=== PATIENT | male | born 1980 | race Caucasian/White ===

== ENCOUNTER 2023-08-24 16:53 | Emergency (ER) | payer MEDICAID, SELFPAY ==
[2023-08-24 17:28] VITALS: BP 131/93; PULSE 114; RESP 16; TEMP 37.4; O2SAT 99
--- NOTE | 2023-08-24 20:22 | ED.EAR ---
HPI - Ear Problem General Chief complaint: Ear Stated complaint: left ear pain and swelling Time Seen by Provider: 08/24/23 19:36 History of Present Illness HPI Narrative: 43-year-old male presenting to the emergency department for evaluation of left ear pain. Pain started bothering him a few days ago. patient has been swimming. Related Data Allergies Allergy/AdvReac Type Severity Reaction Status Date / Time pcn Allergy Unknown Uncoded 04/15/15 10:25 Review of Systems Review of Systems: All systems reviewed & are unremarkable except as noted in HPI and below Exam Narrative: APPEARANCE: Well appearing, no pain, no distress, well-nourished. HEAD: normocephalic, atraumatic. EYES: PERRLA/EOMI, conjunctivae clear. NOSE: Normal no drainage EARS: Otitis externa of the left ear THROAT: Pharynx clear, no exudate. NECK: Supple. No adenopathy, no masses. RESPIRATORY: Airway patent, respirations nonlabored. Clear to auscultation bilaterally, no rales, rhonchi, wheezing. CARDIOVASCULAR: Regular rate and rhythm without murmurs rubs or gallops. ABDOMINAL: Soft, nontender, nondistended, normal bowel sounds MUSCULOSKELETAL: Moves all extremities. Strength/ROM intact, No edema, No calf tenderness. NEURO: Alert. Cranial nerves II through XII intact. Good gait. Good coordination SKIN: Warm, dry. Normal Color Course Vital Signs Vital signs: Vital Signs Temperature 99.3 F 08/24/23 17:28 Pulse Rate 114 H 08/24/23 17:28 Respiratory Rate 16 08/24/23 17:28 Blood Pressure 131/93 H 08/24/23 17:28 Pulse Oximetry 99 08/24/23 17:28 Oxygen Delivery Room Air 08/24/23 17:28 Temperature 99.3 F 08/24/23 17:28 Pulse Rate 114 H 08/24/23 17:28 Respiratory Rate 16 08/24/23 17:28 Blood Pressure 131/93 H 08/24/23 17:28 Pulse Oximetry 99 08/24/23 17:28 Oxygen Delivery Room Air 08/24/23 17:28 Medical Decision Making [facility] Narrative Medical decision making narrative: 33-year-old male presents to the emergency department for evaluation of left ear pain. Patient does have otitis externa. He was treated with ofloxacin. Wick was placed. Patient was encouraged close follow-up with primary care physician. Differential Diagnosis Differential Diagnosis: Otitis media, otitis externa Vital Signs Vital Signs: Vital Signs Temperature 99.3 F 08/24/23 17:28 Pulse Rate 114 H 08/24/23 17:28 Respiratory Rate 16 08/24/23 17:28 Blood Pressure 131/93 H 08/24/23 17:28 Pulse Oximetry 99 08/24/23 17:28 Oxygen Delivery Room Air 08/24/23 17:28 Temperature 99.3 F 08/24/23 17:28 Pulse Rate 114 H 08/24/23 17:28 Respiratory Rate 16 08/24/23 17:28 Blood Pressure 131/93 H 08/24/23 17:28 Pulse Oximetry 99 08/24/23 17:28 Oxygen Delivery Room Air 08/24/23 17:28 Discharge Plan Discharge Clinical Impression: Otitis externa Patient Disposition: Home, Self-Care Condition: Stable Instructions: Antibiotic Form, Swimmer's Ear (ED) Additional Instructions: Antibiotic drops as directed. The ear wick should fall out within the next few days. have close follow-up with your primary care physician. Prescriptions: New ofloxacin 0.3 % drops 10 drp LEFT EAR DAILY 7 Days Qty: 5 0RF Follow-up/Referrals: PHYSICIAN,BRICK BAKER [Primary Care Provider] -
== END 2023-08-24 20:37 | disposition home or self-care (01) ==
PROVIDERS: Emergency Provider Emergency Medicine
DX: H60.92 Unspecified otitis externa, left ear (principal)
CPT/HCPCS: 99283; A9270

== ENCOUNTER 2024-09-19 09:13 | Emergency (ER) | payer SELFPAY ==
--- NOTE | ~2024-09-19 | XR_ITS ---
XR foot RT min 3V Ordering provider: Namita Clifford PA-C History: . right foot pain X 4DAYS AGO, NO KNOWN INJURY . Comparison: None. FINDINGS: BONES: No acute fracture or dislocation. JOINT SPACES: Normal. No tarsal coalition. SOFT TISSUES: Normal. IMPRESSION: No acute osseous abnormality of the right foot. Reviewed, dictated and finalized at location A.
[2024-09-19 09:16] VITALS: BP 144/83; PULSE 87; RESP 16; TEMP 36.2; O2SAT 99
[2024-09-19 09:56] VITALS: BP 129/84; PULSE 94; RESP 20; O2SAT 96
--- NOTE | 2024-09-19 10:28 | ED_ITS ---
HPI - Extremity Problem General Chief complaint: Extremity Problem,Nontraumatic Stated complaint: right foot swelling Time Seen by Provider: 09/19/24 09:53 History of Present Illness HPI Narrative: 44-year-old male with no past medical history presents to emergency department for right foot pain, swelling and redness for the past 4 days. Patient denies injury trauma. States the pain started on the dorsal lateral aspect of his foot. He states yesterday he thought it may be due to an ingrown toenail so he pulled his right 5th toenail but did not notice any improvement. Denies any drainage from the nail bed, fevers, nausea or vomiting, chills. Denies history of gout but does endorse family history of gout. Related Data Allergies Allergy/AdvReac Type Severity Reaction Status Date / Time Penicillins Allergy Hives Verified 09/19/24 09:19 Review of Systems 2 Review of Systems: All systems reviewed & are unremarkable except as noted in HPI and below Exam 2 Narrative: GENERAL: Well-appearing, well-nourished, and in no acute distress. HEAD: Normocephalic, atraumatic. EYES:EOMI. ENT: Nares clear, no rhinorrhea or epistaxis. Mucous membranes moist. NECK: Supple. CHEST: Clear to auscultation. No respiratory distress. HEART: Regular rate and rhythm. No murmur heard. Normal peripheral pulses. EXTREMITIES: RLE: Edema, erythema warmth over the dorsum of the right foot extending from the 2nd metatarsal to the 5th metatarsal. Point tenderness over the 5th MTP. Fifth nail is avulsed with dried blood to the lateral nail folds. No areas of fluctuance or drainage concerning for paronychia. Patient is able to wiggle his toes without difficulty. DP pulses 2+. Sensation intact. SKIN: Warm, dry, no rash. NEURO: No focal deficits. Alert and oriented x3 Course Vital Signs Vital signs: Vital Signs Temperature 97.2 F L 09/19/24 09:16 Pulse Rate 87 09/19/24 09:16 Respiratory Rate 16 09/19/24 09:16 Blood Pressure 144/83 H 09/19/24 09:16 Pulse Oximetry 99 09/19/24 09:16 Temperature 97.2 F L 09/19/24 09:16 Pulse Rate 94 09/19/24 09:56 Respiratory Rate 20 09/19/24 09:56 Blood Pressure 129/84 09/19/24 09:56 Pulse Oximetry 96 09/19/24 09:56 MDM - Extremity (Nontraumatic) MDM Narrative Medical decision making narrative: 44-year-old male presents to the emergency department for atraumatic right foot pain. See HPI for further history. Vitals are stable. Patient is afebrile nontoxic appearing. Exam is notable for the above. Suspect cellulitis versus gout. X-ray showed no acute osseous findings. Lab work without leukocytosis or anemia. Chemistries incidentally show an AST of 94 and ALT 183 with a normal alk-phos and bilirubin. Patient has no tenderness to the right upper quadrant epigastrium on exam. ESR within normal limits. CRP is mildly elevated at 1.5. Patient was updated on results. Will cover for both gout and cellulitis with naproxen and Bactrim. Advised follow-up with PCP discussed return precautions. He is agreeable with the plan verbalized understanding. Discharged in stable condition. Lab Data 09/19/24 10:45 09/19/24 10:45 Labs: Lab Results 09/19/24 Range/Units 10:45 WBC 7.7 (4.5-10.0) K/mm3 RBC 4.41 L (4.6-6.20) M/mm3 Hgb 14.0 (14.0-18.0) g/dL Hct 39.8 L (42.0-52.0) % MCV 90.2 (80-100) fl MCH 31.7 (26-34) pg MCHC 35.2 (32-36) g/dl RDW 13.2 (11.5-14.5) % Plt Count 210 (150-375) k/mm3 MPV 11.3 H (7.4-10.4) fl Immature Gran % (Auto) 0.4 (0-0.5) % Neut % (Auto) 71.9 (45.5-73.1) % Lymph % (Auto) 16.7 L (18.3-44.2) % Wilkes % (Auto) 7.5 (2.6-8.5) % Eos % (Auto) 3.1 (0-4.4) % Baso % (Auto) 0.4 (0.2-1.2) % Lymph # (Auto) 1.28 (0.9-3.2) K/mm3 Wilkes # (Auto) 0.6 (0.1-0.6) K/mm3 Eos # (Auto) 0.2 (0-0.3) K/mm3 Baso # (Auto) 0.0 (0.0-0.1) K/mm3 Abs Immat Gran (auto) 0.03 (0.00-0.031) K/mm3 Absolute Neuts (auto) 5.5 (1.3-6.7) K/mm3 Absolute Nucleated RBC 0.000 (0.0-0.012) K/mm3 Nucleated RBC % 0.0 (0.0-0.2) % ESR 15 (0-20) mm/hr Sodium 140 (137-145) mmol/L Potassium 4.1 (3.4-5.0) mmol/L Chloride 104 (98-107) mmol/L Carbon Dioxide 22 (22-30) mmol/L Anion Gap 14 H (4-12) mmol/L BUN 15 (9-20) mg/dL Creatinine 0.99 (0.7-1.3) mg/dL Estim Creat Clear Calc Not Reportable Estimated GFR > 60 (59 - ) Glucose 119 H (65-110) mg/dL Calcium 9.7 (8.4-10.2) mg/dL Total Bilirubin 0.9 (0.2-1.3) mg/dL AST 94 H (17-59) U/L ALT 183 H (6-50) U/L Alkaline Phosphatase 45 (38-126) U/L C-Reactive Protein 1.5 H (<1.0) mg/dL Total Protein 8.1 (6.3-8.2) g/dL Albumin 4.5 (3.5-5.1) g/dL Discharge Plan Discharge Clinical Impression: Cellulitis of foot Patient Disposition: Home Condition: Stable Instructions: Antibiotic Form, Cellulitis (ED), Gout (ED) Additional Instructions: You were evaluated in the emergency department for possible gout versus cellulitis. Your workup here was reassuring. Incidentally or found have elevated liver enzymes with an AST of 94 and ALT 183. Please follow-up with the primary care provider regarding this for further evaluation. Make sure to eat a healthy diet and exercise. Your symptoms may be due to gout or cellulitis. We started you on anti-inflammatories and antibiotics to cover both. Please take these as directed. Return to the emergency department if you develops spreading redness, fever, worsening pain or other concerning symptoms. Patient Language: Kiswahili Prescriptions: New sulfamethoxazole-trimethoprim 800-160 mg tablet 1 tablet PO Q12H Qty: 14 0RF naproxen 500 mg tablet 500 mg PO BID PRN (Reason: pain) Qty: 20 0RF No Action ofloxacin 0.3 % drops 10 drp LEFT EAR DAILY 7 Days Qty: 5 0RF Follow-up/Referrals: Eileen Campos DO [Physician] - PHYSICIAN,TRUCK BENCH MECHANIC [Primary Care Provider] -
[2024-09-19] MEDS: NAPROXEN 500 MG TABLET PO (10:33)
[2024-09-19 10:52] LABS: Basophils Percent Auto 0.4 % (0.2-1.2); Eosinophils Absolute Auto 0.2 K/mm3 (0-0.3); Eosinophils Percent Auto 3.1 % (0-4.4); Hematocrit 39.8 % (42.0-52.0); Immature Granulocyte Absolute 0.03 K/mm3 (0.00-0.031); Immature Granulocyte Percent A 0.4 % (0-0.5); Lymphocytes Absolute Auto 1.28 K/mm3 (0.9-3.2); Lymphocytes Percent Auto 16.7 % (18.3-44.2); Mean Corpuscular HGB Conc 35.2 g/dl (32-36); Mean Corpuscular Hemoglobin 31.7 pg (26-34); Mean Corpuscular Volume 90.2 fl (80-100); Mean Platelet Volume 11.3 fl (7.4-10.4); Monocytes Absolute Auto 0.6 K/mm3 (0.1-0.6); Monocytes Percent Auto 7.5 % (2.6-8.5); Neutrophils Absolute Auto 5.5 K/mm3 (1.3-6.7); Neutrophils Percent Auto 71.9 % (45.5-73.1); Platelet Count Result 210 k/mm3 (150-375); Red Blood Count 4.41 M/mm3 (4.6-6.20); Red Cell Distribution Width 13.2 % (11.5-14.5); White Blood Count 7.7 K/mm3 (4.5-10.0)
[2024-09-19 11:05] LABS: Alanine Aminotransferase 183 U/L (6-50); Albumin Level 4.5 g/dL (3.5-5.1); Alkaline Phosphatase 45 U/L (38-126); Anion Gap 14 mmol/L (4-12); Aspartate Amino Transferase 94 U/L (17-59); Bilirubin,Total 0.9 mg/dL (0.2-1.3); Blood Urea Nitrogen 15 mg/dL (9-20); CRP 1.5 mg/dL (<1.0); Calcium 9.7 mg/dL (8.4-10.2); Carbon Dioxide 22 mmol/L (22-30); Chloride 104 mmol/L (98-107); Estimated Glomerular Filt Rate > 60; Glucose 119 mg/dL (65-110); Potassium 4.1 mmol/L (3.4-5.0); Sodium 140 mmol/L (137-145); Total Protein 8.1 g/dL (6.3-8.2)
[2024-09-19 11:19] LABS: Erythrocyte Sedimentation Rate 15 mm/hr (0-20)
[2024-09-19 12:03] VITALS: BP 136/84; PULSE 84; RESP 16; O2SAT 99
[2024-09-19] MEDS: SULFAMETHOXAZOLE/TRIMETHOPRIM 800/160 MG DS TABLET 1 TAB PO (12:14)
== END 2024-09-19 12:03 | disposition home or self-care (01) ==
PROVIDERS: Emergency Provider Physician Assistant
DX: L03.115 Cellulitis of right lower limb (principal)
CPT/HCPCS: 36415; 73630; 80053; 85025; 85652; 86140; 99283; A9270